=== PATIENT | female | born 1975 | race Caucasian/White ===

== ENCOUNTER 2022-05-01 21:35 | Emergency (ER) | payer BC ==
[~2022-05-01] VITALS: Ht 162.6 cm; Wt 72.6 kg
[2022-05-01 21:41] VITALS: BP_SYST 89
--- NOTE | 2022-05-01 21:50 | NUR ---
Patient to ER bed 02 to gown for evaluation. Side rails up. Report given to Layla WILD.
--- NOTE | 2022-05-01 21:52 | NUR ---
Pt BIBA, ALS, with c/o of syncope. Per medics, pt fell from chair to floor with LOC and head truama to back of head. Pt denies pain at this time. Pt A&O X4, arrived with 20G in LAC with NS bolus running. Accucheck on arrival is 73. BP 89/54, Dr. Ramirez made aware. HX of type 1 DM, insulin dependent. Pt given 4 of zofran in the field.
[2022-05-01] MEDS ORDERED: GLUCOSE (DEXTROSE) ORAL GEL -Adults PO ONE (22:00)
[2022-05-01] MEDS ORDERED: NACL 0.9% 1,000 ML IV ONE (22:30)
--- NOTE | 2022-05-01 22:59 | NUR ---
BG 77
--- NOTE | 2022-05-01 22:59 | NUR ---
PT C/O OF NAUSEA ERMD MADE AWARE
[2022-05-01] MEDS ORDERED: ONDANSETRON HCL 4 MG/2 ML VIAL IVP ONE (23:00)
--- NOTE | 2022-05-01 23:02 | NUR ---
LAB AT BEDSIDE
[2022-05-01 23:15] LABS: BASOPHILS % (AUTO) 0.6 % (0.0-2.0); EOSINOPHILS # (AUTO) 0.2 K/uL (0.0-0.4); EOSINOPHILS % (AUTO) 4.1 % (0.0-4.0); HEMATOCRIT 38.4 % (36-48); HEMOGLOBIN 13.5 g/dL (12.0-16.0); LYMPHOCYTES # (AUTO) 1.7 K/uL (1.0-5.5); LYMPHOCYTES % (AUTO) 36.3 % (20.5-51.5); MEAN CORPUSCULAR HEMOGLOBIN 32 pg (27-31); MEAN CORPUSCULAR HGB CONC 35 % (32-36); MEAN CORPUSCULAR VOLUME 90 fL (79.0-98.0); MONOCYTES # (AUTO) 0.3 K/uL (0.0-1.0); MONOCYTES % (AUTO) 5.9 % (1.7-9.3); NEUTROPHILS # (AUTO) 2.4 K/uL (1.8-7.7); NEUTROPHILS % (AUTO) 53.1 % (40.0-70.0); PLATELET COUNT (AUTO) 183 K/uL (130-430); RED BLOOD CELL COUNT(AUTO) 4.27 MIL/uL (4.2-6.2); RED CELL DISTRIBUTION WIDTH 12.2 % (9.0-15.0); WHITE BLOOD COUNT (AUTO) 4.6 K/uL (4.8-10.8)
--- NOTE | 2022-05-02 00:05 | NUR ---
Patient resting quietly. No acute distress noted. Vital signs within normal range.
[2022-05-02 01:00] LABS: ANION GAP 9 (5-15); CALCIUM 8.8 mg/dL (8.4-11.0); CHLORIDE 100 mmol/L (98-107); CREATININE 0.85 mg/dL (0.55-1.30); GLUCOSE 94 mg/dL (70-99); POTASSIUM 3.3 mmol/L (3.5-5.1); UREA NITROGEN, BLOOD 10 mg/dL (8-21)
[2022-05-02 01:04] LABS: GFR AFRICAN AMERICAN 93 mL/min (>90)
[2022-05-02 01:08] LABS: ALANINE AMINOTRANSFERASE 22 U/L (12-78); ALBUMIN 3.4 g/dL (3.4-4.8); ALCOHOL, BLOOD 25 mg/dL (<10); ASPARTATE AMINOTRANSFERASE 13 U/L (10-37); TOTAL BILIRUBIN 0.4 mg/dL (0.0-1.0)
[2022-05-02 02:04] VITALS: BP_SYST 124
--- NOTE | 2022-05-02 02:04 | NUR ---
Patient given written and verbal discharge instructions and verbalizes understanding. ER MD discussed with patient the results and treatment provided. Patient in stable condition. ID arm band removed. IV catheter removed intact and dressing applied, no active bleeding. Patient educated on pain management and to follow up with PMD. Pain Scale 0/10. Opportunity for questions provided and answered.
== END 2022-05-02 02:04 | disposition home or self-care (01) ==
LOC: SED 21:35
DX: R55 Syncope and collapse (principal); E16.2 Hypoglycemia, unspecified; R11.0 Nausea; Z79.899 Other long term (current) drug therapy
CPT/HCPCS: 99285; 96374; 96361; 80053; 83880; 85025; 84484; 36415; 93005; 70450; 71045; 76376; G0482; J2405; J7030